=== PATIENT | male | born 1980 | race Native Hawaiian/Other Pacific Islander ===

== ENCOUNTER 2016-11-12 13:28 | Emergency (ER) | payer OTHER ==
[2016-11-12 13:44] VITALS: BP 150/101
[2016-11-12] MEDS ORDERED: BOOSTRIX IM ONE (14:30)
[2016-11-12] MEDS ORDERED: TRIPLE ANTIBIOTIC TP ONE (14:30)
--- NOTE | 2016-11-12 14:36 | Emergency Department Report ---
ED Laceration HPI - HPI Chief Complaint: Wound/Laceration Stated Complaint: CUT FINGER Time Seen by Provider: 11/12/16 14:23 ED Review of Systems ROS: Stated complaint: CUT FINGER Other details as noted in HPI Constitutional: denies: chills, fever Eyes: denies: eye pain, eye discharge, vision change Respiratory: denies: cough, shortness of breath, wheezing Skin: other (laceration left fourth finger) ED Past Medical Hx - Past Medical History Hx Hypertension: Yes Hx Heart Attack/AMI: Yes (2014) Hx Diabetes: Yes Additional medical history: ENLARGED HEART. CAD - Surgical History Hx Coronary Stent: Yes Hx Appendectomy: Yes - Social History Smoking Status: Former Smoker Substance Use Type: None - Medications Home Medications: Home Medications Medication Instructions Recorded Confirmed Last Taken Type Cephalexin [Keflex] 500 mg PO Q6HR #40 capsule 11/12/16 Unknown Rx Laceration Physical Exam - Exam General: Vital signs noted. No distress. Alert and acting appropriately. Laceration is 1 cm linear hemostatic dirty wound from working on car. No ligamentous or muscular involvement. A nonsuturable laceration. Laceration Exam: No Foreign Body, No Exposed Tendon, Vessel, or Nerve, No Tendon Injury, No Normal Distal CMS ED Course Vital Signs 11/12/16 13:42 Temperature 98.1 F Pulse Rate 115 H Respiratory 17 Rate Blood Pressure 150/101 O2 Sat by Pulse 97 Oximetry Critical care attestation.: If time is entered above; I have spent that time in minutes in the direct care of this critically ill patient, excluding procedure time. ED Disposition Clinical Impression: Encounter for wound care Disposition: DISCHARGED TO HOME OR SELFCARE Is pt being admited?: No Does the pt Need Aspirin: No Condition: Stable Instructions: Acute Wound Care (ED) Prescriptions: Cephalexin [Keflex] 500 mg PO Q6HR #40 capsule Referrals: PRIMARY CARE, [Primary Care Provider] - 3-5 Days
== END 2016-11-12 14:57 | disposition home or self-care (01) ==
LOC: ED 13:28
DX: Z48.01 Encounter for change or removal of surgical wound dressing (principal); I10 Essential (primary) hypertension; I25.2 Old myocardial infarction; E11.9 Type 2 diabetes mellitus without complications; I25.810 Atherosclerosis of coronary artery bypass graft(s) without angina pectoris
CPT/HCPCS: 90471; 90715; A6250

== ENCOUNTER 2017-06-30 06:41 | Observation (INO) | payer OTHER ==
[2017-06-30 07:31] LABS: Basophils % (Auto) 0.4 % (0.0-1.8); Eosinophils % (Auto) 2.7 % (0.0-4.3); Hematocrit 44.9 % (35.5-45.6); Hemoglobin 15.5 gm/dl (11.8-15.2); Mean Corpuscular HGB Conc 35 % (32-34); Mean Corpuscular Hemoglobin 30 pg (28-32); Mean Corpuscular Volume 86 fl (84-94); Platelet Count 280 K/mm3 (140-440); Red Blood Count 5.24 M/mm3 (3.65-5.03); White Blood Count 9.3 K/mm3 (4.5-11.0)
[2017-06-30 07:41] LABS: INR 0.96 (0.87-1.13)
[2017-06-30 07:43] LABS: Anion Gap 16 mmol/L; BUN/Creatinine Ratio 23.33; Blood Urea Nitrogen 14 mg/dL (9-20); Calcium 8.8 mg/dL (8.4-10.2); Carbon Dioxide 23 mmol/L (22-30); Chloride 102.7 mmol/L (98-107); Glucose 250 mg/dL (75-100); Potassium 3.8 mmol/L (3.6-5.0); Sodium 138 mmol/L (137-145)
[2017-06-30] MEDS ORDERED: NACL 0.9% 500 ML 500 ML IV SCH (08:00)
[2017-06-30] MEDS ORDERED: BENADRYL IV ONE (08:30)
[2017-06-30] MEDS ORDERED: NORCO 5/325 PO ONE (08:30)
[2017-06-30] MEDS: SUBLIMAZE ONE ×4 (11:30→12:43)
[2017-06-30] MEDS: XYLOCAINE 2% INFILTRATI ONE ×2 (11:31→11:39)
[2017-06-30] MEDS: HEPARIN/NS 5000 UNIT/500ML(CATH LAB) 1,000 ML IR ONE ×2 (11:31→11:38)
[2017-06-30] MEDS: NITROGLYCERIN SYRINGE 3 ML ONE ×2 (11:31→11:41)
[2017-06-30] MEDS: CALAN ONE ×2 (11:32→11:41)
[2017-06-30] MEDS: HEPARIN 10,000 UNITS/10 ML ONE ×5 (11:32→13:19)
[2017-06-30] MEDS: VERSED ONE ×2 (11:37→12:58)
[2017-06-30] MEDS ORDERED: HEPARIN/NS 5000 UNIT/500ML(CATH LAB) 1,000 ML IR ONE (12:49)
[2017-06-30] MEDS ORDERED: NITROGLYCERIN SYRINGE 3 ML ONE (12:50)
[2017-06-30] MEDS ORDERED: XYLOCAINE 2% INFILTRATI ONE (12:50)
[2017-06-30] MEDS ORDERED: CALAN ONE (12:50)
[2017-06-30] MEDS ORDERED: BRILINTA ONE (13:28)
--- NOTE | 2017-06-30 13:50 | Event Note ---
Date: 06/30/17 Outpatient cardiac cath followed by PCI of RCA with a DE stent deployed to midvessel. No complications. Procedure done via R radial approach. Plan: 1. Overnight post PCI obs-discharge tomorrow am. 2. On discharge STOP Prasugrel, and switch Brilinta 90 BID. 3. Patient has ASA allergy, and so will be on monotherapy. 4. Add Statin-Lipitor 40. 5. Hold Metformin for 2 days after contrast angio.
[2017-06-30] MEDS ORDERED: NACL 0.9% 1000 ML 1,000 ML IV SCH (14:00)
[2017-06-30] MEDS ORDERED: LOPRESSOR PO SCH (14:00)
[2017-06-30] MEDS ORDERED: NACL 0.9% 1000 ML 1,000 ML ONE (14:10)
[2017-06-30] MEDS: ULTRAM PO PRN ×2 (14:19→18:35)
[2017-06-30] MEDS ORDERED: ZOFRAN IV PRN (14:30)
[2017-06-30] MEDS ORDERED: TYLENOL PO PRN (14:30)
[2017-06-30] MEDS: IMDUR PO SCH (15:44)
[2017-06-30] MEDS: LOPRESSOR PO SCH (16:27)
--- NOTE | 2017-06-30 18:34 | Cardiac Catherization Report ---
REASON FOR PROCEDURE: The patient is a 37-year-old man who underwent cardiac catheterization today for unstable angina. Cardiac catheterization revealed significant disease of the right coronary artery. He was referred for coronary intervention. The angiograms were reviewed. The right coronary artery contained mild proximal disease. This was followed by a long, irregular 80% stenosis of the mid segment. Following that, a stent was noted in the distal AV groove vessel, midway between the acute margin and the right posterior descending branch. The stented segment contained diffuse, instent restenosis with up to 50-60% luminal narrowing. We planned coronary angioplasty of the distal instent restenosis, followed by angioplasty and stenting of the mid de emperatriz stenosis. PROCEDURE: A 6-Burkinan hydrophilic sheath was exchanged into the right radial artery, replacing the sheath from the diagnostic procedure. Routine radial cocktail was administered following sheath exchange. We then selected a #1 right Amplatz guiding catheter and advanced to the right coronary ostium. Preintervention angiograms were taken. A 0.014 inch [employer] 50 guidewire was introduced, successfully placed through the lesional segments, into the distal vessel. Following wire placement, we used a 3.0 x 15 mm balloon catheter, first dilated the distal instent restenosis. The same balloon catheter was then withdrawn, into the mid vessel, used to predilate the de emperatriz stenosis. Subsequently, we transitioned a 3.5 x 15 mm Resolute drug-eluting stent to the mid vessel and inflated to optimal pressures. Following stenting of the mid vessel, post-intervention angiogram showed an excellent angiographic result, 0 residual stenosis of the mid vessel. The distal instent restenosis also resolved following balloon angioplasty with an excellent angiographic result and no residual stenosis. The procedure was well tolerated by the patient and there were no complications. CONCLUSION: Successful angioplasty and stenting of the right coronary artery. The distal vessel instent restenosis was successfully treated using plain old balloon angioplasty without additional stenting. The de emperatriz 80% stenosis of the mid segment was treated successfully using a 3.5 x 15 mm Resolute drug-eluting stent. Excellent angiographic result at both treated sites. JOB# [id number] CHRIS/DIAZ
[2017-06-30] MEDS ORDERED: NAPROSYN PO PRN (20:33)
[2017-06-30] MEDS ORDERED: AMBIEN PO PRN (22:00)
[2017-07-01 06:01] LABS: Basophils % (Auto) 0.2 % (0.0-1.8); Eosinophils % (Auto) 0.2 % (0.0-4.3); Hematocrit 44.6 % (35.5-45.6); Hemoglobin 14.8 gm/dl (11.8-15.2); Mean Corpuscular HGB Conc 33 % (32-34); Mean Corpuscular Hemoglobin 29 pg (28-32); Mean Corpuscular Volume 86 fl (84-94); Platelet Count 305 K/mm3 (140-440); Red Blood Count 5.19 M/mm3 (3.65-5.03); Red Cell Distribution Width 13.5 % (13.2-15.2); White Blood Count 13.8 K/mm3 (4.5-11.0)
[2017-07-01 06:29] LABS: Anion Gap 20 mmol/L; Blood Urea Nitrogen 14 mg/dL (9-20); Calcium 9.3 mg/dL (8.4-10.2); Carbon Dioxide 21 mmol/L (22-30); Chloride 102.6 mmol/L (98-107); Creatine Kinase 52 units/L (55-170); Glucose 225 mg/dL (75-100); Potassium 3.8 mmol/L (3.6-5.0); Sodium 140 mmol/L (137-145)
--- NOTE | 2017-07-01 08:48 | XRay Report ---
AP CHEST: HISTORY: chest pain AP view of the chest demonstrates a normal mediastinal and cardiac contour with clear lungs and normal bony and soft tissue structures. IMPRESSION: Unremarkable AP chest.
[2017-07-01] MEDS ORDERED: BRILINTA PO SCH (10:00)
--- NOTE | 2017-07-01 10:54 | Short Stay Summary ---
Short Stay Documentation Date of service: 07/01/17 - History H&P: obtained from office - Allergies and Medications Current Medications: Allergies shellfish derived Allergy (Verified 11/12/16 13:38) Anaphylaxis aspirin Adverse Reaction (Verified 11/12/16 13:38) Hives Penicillins Adverse Reaction (Verified 11/12/16 13:38) Hives Home Medications Medication Instructions Recorded Confirmed Last Taken Type ISOSORBIDE MONOnitrate [Imdur ER] 30 mg PO DAILY 06/30/17 06/30/17 06/29/17 History 30mg Insulin Aspart [NovoLOG Flexpen] 5 units SQ TID 06/30/17 06/30/17 06/29/17 History 5units Insulin Detemir [Levemir] 25 units SQ HS 06/30/17 06/30/17 06/29/17 History 12.5units Metformin HCl [Glucophage] 1,000 mg PO DAILY 06/30/17 06/30/17 06/29/17 History 500mg Metoprolol [Lopressor TAB] 25 mg PO DAILY 06/30/17 06/30/17 06/29/17 History 25mg Prasugrel [Effient] 10 mg PO DAILY 06/30/17 06/30/17 06/29/17 History 10mg Active Medications Acetaminophen (Tylenol) 650 mg PO Q4H PRN PRN Reason: Pain MILD(1-3)/Fever >100.5/RAMOS Atorvastatin Calcium (Lipitor) 40 mg PO QHS [facility] Last Admin: 06/30/17 22:02 Dose: 40 mg Insulin Human Regular (Novolin R) 0 units SUB-Q ACHS [facility] PRN Reason: Protocol Last Admin: 06/30/17 22:03 Dose: 6 units Isosorbide Mononitrate (Imdur) 30 mg PO QDAY [facility] Last Admin: 06/30/17 15:44 Dose: 30 mg Metoprolol Tartrate (Lopressor) 25 mg PO DAILY [facility] Last Admin: 06/30/17 16:27 Dose: 25 mg Naproxen (Naprosyn) 500 mg PO Q12H PRN PRN Reason: Pain, Mild (1-3) Last Admin: 06/30/17 22:02 Dose: 500 mg Ondansetron HCl (Zofran) 4 mg IV Q8H PRN PRN Reason: N/V unrelieved by Reglan Ticagrelor (Brilinta) 90 mg PO BID IRINEO Tramadol HCl (Ultram) 50 mg PO Q4H PRN PRN Reason: Pain, Mild (1-3) Last Admin: 06/30/17 18:35 Dose: 50 mg Zolpidem Tartrate (Ambien) 5 mg PO QHS PRN PRN Reason: Sleep Last Admin: 06/30/17 22:03 Dose: 5 mg - Physical exam General appearance: no acute distress HEENT: PERRLA Lungs: Clear to auscultation Heart: Regular rate, Normal S1, Normal S2 - Brief post op/procedure progress note Procedure: Outpatient cardiac cath followed by PCI of RCA with a DE stent deployed. No complications. Procedure done via R radial approach. Plan: 1. On discharge STOP Prasugrel, and switch Brilinta 90 BID. 2. Patient has ASA allergy, and so will be on monotherapy. 3. Add Statin-Lipitor 40. 4. Hold Metformin for 2 days after contrast angio. Condition: stable - Hospital course Hospital course: Stable overnight observation. Patient recommended to see his PCP in the outpatient setting for further evaluation and therapy for his diabetes. - Disposition Condition at discharge: Good Disposition: [id number] TO HOME OR SELFCARE Short Stay Discharge Plan Diet: low fat, low cholesterol, low salt, diabetic Special Instructions: hold Metformin (48hrs post cardiac cath) Follow up with: PRIMARY CARE, [Primary Care Provider] - 7 Days [facility] Prescriptions: AtorvaSTATin [Lipitor] 40 mg PO QHS #30 tablet Ticagrelor [Brilinta] 90 mg PO BID #60 tablet
[2017-07-01] MEDS: IMDUR PO SCH (11:43)
[2017-07-01] MEDS: LOPRESSOR PO SCH (12:24)
[2017-07-01 12:25] VITALS: BP 118/74
--- NOTE | 2017-07-02 08:59 | Cardiac Catherization Report ---
LEFT HEART CATHETERIZATION ORDERING PHYSICIAN: Dr. Montana PROCEDURES PERFORMED: 1. Selective left and right coronary angiography. 2. Left ventriculography. DESCRIPTION OF PROCEDURE: After obtaining written consent, the patient was draped using sterile technique. A 2% lidocaine was injected into the right wrist. A 6-Indonesian vascular sheath was inserted into the right radial artery. A 6-Indonesian JL3.5 catheter was used to selectively engage the left coronary artery. A 6-Indonesian JR4 catheter was used to selectively engage the right coronary artery. A 6-Indonesian JR4 catheter was used to hand inject the left ventriculogram. No complications occurred during the procedure. Hemostasis was achieved at the end of the procedure using manual pressure. SPECIMEN REMOVED: None. ESTIMATED BLOOD LOSS: Minimal. FINDINGS: HEMODYNAMICS: Aortic pressure was 130/87 with a left ventricular systolic pressure of 134 mmHg. LVEDP measured at 26 mmHg. CARDIAC STRUCTURES: There is normal left ventricular size and systolic function. The left ventricular ejection fraction is estimated at 55%. Normal wall motion. CORONARY ANATOMY: 1. This is a right dominant circulation. 2. The left main is angiographically normal. 3. The LAD has mild diffuse nonobstructive luminal irregularities. 4. Left circumflex artery has evidence of a focal 40% stenosis noted at the takeoff of the second obtuse marginal. 5. The right coronary artery is a large caliber vessel. There is evidence of a tubular stenosis noted in the proximal to mid right coronary artery with 70% luminal compromise. There is a stent noted in the distal right coronary artery with at least 20-30% in-stent restenosis. The area within the stent is hazy and therefore cannot exclude a more significant stenosis in this area. IMPRESSION: 1.Nonobstructive disease noted in the left circulation. 2.A 70% tubular stenosis noted in the proximal to mid right coronary artery followed by a hazy in-stent restenosis noted in the distal right coronary artery. 3.Normal left ventricular size and systolic function. RECOMMENDATIONS: Proceed with PCI to the proximal and mid right coronary artery and further evaluation of the hazy lesion within the distal right coronary artery stent. JOB# [id number] KYREE/DIAZ
== END 2017-07-01 12:50 | disposition home or self-care (01) ==
LOC: CATHLABREC 06:41 → 4A 13:39
PROVIDERS: ADMIT Internal Medicine Cardiovascular Disease; ATTEND Internal Medicine
DX: I25.110 Atherosclerotic heart disease of native coronary artery with unstable angina pectoris (principal); F41.9 Anxiety disorder, unspecified; E11.9 Type 2 diabetes mellitus without complications; F32.9 Major depressive disorder, single episode, unspecified; E78.5 Hyperlipidemia, unspecified; I10 Essential (primary) hypertension; R00.2 Palpitations; Z82.49 Family history of ischemic heart disease and other diseases of the circulatory system
CPT/HCPCS: 36415; 71010; 80048; 82550; 82553; 82962; 84484; 85025; 85347; 85610; 85730; 93005; 93010; 93458; 96372; 96374; A9270; C1725; C1769; C1874; C1887; C1894; C9600; G0378; J1200; J1644; J2250; J2930; J3010; J7030; J7040; 92928; 96375; J1815; Q9967

== ENCOUNTER 2020-02-02 16:59 | Observation (INO) | payer SELFPAY ==
--- NOTE | 2020-02-02 18:02 | XRay Report ---
CHEST 2 VIEWS INDICATION / CLINICAL INFORMATION: Chest pain intermittently for 2 days, abnormal EKG. COMPARISON: None available. FINDINGS: SUPPORT DEVICES: None. HEART / MEDIASTINUM: No significant abnormality. LUNGS / PLEURA: No significant pulmonary or pleural abnormality. .No pneumothorax. ADDITIONAL FINDINGS: There are fractures of the left seventh and eighth ribs. There is associated ple ural thickening which may represent focal hematoma IMPRESSION: 1. There are fractures of the left seventh and eighth ribs. There is focal pleural thickening which m ay represent loculated pleural or subpleural hematoma. No pneumothorax is seen. Signer Name: Max Elaine MD Signed: 02/02/2020 5:57 PM Workstation Name: [id number]
[2020-02-02 18:29] LABS: Basophils # (Auto) 0.1 K/mm3 (0.0-0.1); Basophils % (Auto) 0.8 % (0.0-1.8); Eosinophils # (Auto) 0.1 K/mm3 (0.0-0.4); Eosinophils % (Auto) 1.4 % (0.0-4.3); Lymphocytes # (Auto) 2.8 K/mm3 (1.2-5.4); Lymphocytes % (Auto) 32.4 % (13.4-35.0); Mean Corpuscular HGB Conc 36 % (32-34); Mean Corpuscular Volume 87 fl (84-94); Monocytes # (Auto) 0.7 K/mm3 (0.0-0.8); Monocytes % (Auto) 7.8 % (0.0-7.3); Platelet Count 314 K/mm3 (140-440); Red Blood Count 5.02 M/mm3 (3.65-5.03); Red Cell Distribution Width 13.4 % (13.2-15.2)
[2020-02-02 18:36] LABS: Hematocrit 43.4 % (35.5-45.6); Hemoglobin 15.5 gm/dl (11.8-15.2)
[2020-02-02 18:37] LABS: INR 0.95 (0.87-1.13)
[2020-02-02 18:38] LABS: Partial Thromboplastin Time 31.3 Sec. (24.2-36.6)
[2020-02-02 18:51] LABS: BUN/Creatinine Ratio 27; Blood Urea Nitrogen 16 mg/dL (9-20); Hemolysis Index 22
[2020-02-02] MEDS ORDERED: MORPHINE 4 MG/1 ML INJ IV ONE (19:48)
[2020-02-02] MEDS ORDERED: SODIUM CHLORIDE 0.9% 250ML 250 ML IV ONE (19:48)
[2020-02-02] MEDS ORDERED: NITROGLYCERIN 0.4 MG TAB SUBL SL PRN (19:48)
--- NOTE | 2020-02-02 19:48 | Emergency Department Report ---
ED Chest Pain HPI - General Chief Complaint: Chest Pain Stated Complaint: ABNORMAL EKG Time Seen by Provider: 02/02/20 19:28 Source: patient, RN notes reviewed, old records reviewed Mode of arrival: Ambulatory Limitations: No Limitations - History of Present Illness Initial Comments: Patient is a pleasant 39-year-old gentleman. He is not known to myself previously. He has a history of heart disease, diabetes, stent, myocardial infarction. His spring coiler is with [facility]. He is currently on Plavix therapy secondary to aspirin intolerance and allergy, and he denies DVT and pulmonary embolism risk factors. He also has a history of hypertension. He is sent to the ER by his spring coiler ( Dr Taylor) for evaluation of concerning chest pain and dynamic EKG changes. Patient reports a few days of intermittent central and left-sided chest discomfort, which does not radiate to the back, arms or neck. There is no vomiting or diaphoresis. There is shortness of breath. Patient reports this feels similar to prior episodes of myocardial ischemia. At his spring coiler office, he had an EKG performed, showing diffuse T wave ab normalities, which were new when compared to prior EKG. Patient reports that when his chest pain started a few days ago, it was a 7 out of 10, currently it is a 3 out of 10. He denies cocaine use, and erectile dysfunction medication utilization. He reports that he gets symptoms like this once a year typically, and that he knows that "it is time to get my stents checked out." The patient had a cardiac catheterization performed at this hospital in 2017, demonstrated nonobstructive disease noted in the left circulation, a 70% tubular stenosis was noted to the proximal to mid right coronary artery, followed by a hazy in-stent restenosis noted in the distal right coronary artery. He was also found to have a normal left ventricular size and systolic function, and at that time, plan was to proceed with PCI to the proximal and mid right coronary artery, and further evaluation of the aforementioned hazy lesion. At that time, he had a successful angioplasty and stenting of the right coronary artery, the distal vessel in-stent restenosis was successfully treated using plain old balloon angioplasty, without additional stenting. He was also found to have de emperatriz 80% stenosis of the mid segment, which was treated successfully with a drug-eluting stent. There is no complaint of headache, neck pain, abdominal pain, urinary symptoms, and there is no hematemesis or bright red blood per rectum. Of note, the patient reports a mechanical fall a few months ago, and has chronic left-sided rib fractures which he is aware of. He does report stumbling recently and bruising his right hand but he denies acute chest wall trauma MD Complaint: chest pain Onset: during rest Pain Location: left chest Pain Radiation: none Severity: moderate Quality: aching Consistency: intermittent Improves With: nothing Worsens With: nothing Aspirin use within the Past 7 Days: (0) No - Related Data On Oral Contraceptives: No Home Medications Medication Instructions Recorded Confirmed Last Taken Metformin HCl [Glucophage] 1,000 mg PO DAILY 06/30/17 02/03/20 02/01/20 Metoprolol [Lopressor TAB] 50 mg PO DAILY 06/30/17 02/03/20 02/03/20 05:32 Benzonatate 100 mg PO TID PRN 02/02/20 02/03/20 02/03/20 05:32 Clopidogrel [Plavix] 75 mg PO QDAY 02/02/20 02/03/20 02/03/20 05:31 Escitalopram 20 mg PO QDAY 02/02/20 02/03/20 02/03/20 05:32 Famotidine/Ca Carb/Mag Hydrox 20 mg PO BID 02/02/20 02/03/20 02/03/20 05:32 Rosuvastatin Calcium 40 mg PO QDAY 02/02/20 02/03/20 02/01/20 lisinopriL [Zestril TAB] 20 mg PO QDAY 02/02/20 02/02/20 02/03/20 05:32 traZODone 50 mg PO QHS PRN 02/02/20 02/03/20 02/03/20 05:32 Previous Rx's Medication Instructions Recorded Last Taken Type Acetaminophen [Acetaminophen TAB] 325 mg PO Q4H PRN #18 tablet 02/03/20 Unknown Rx HYDROcodone/APAP 5-325 [Ker[place] 1 each PO Q4H PRN #6 tablet 02/03/20 Unknown Rx 5-325 mg TAB] Allergies Allergy/AdvReac Type Severity Reaction Status Date / Time shellfish derived Allergy Anaphylaxis Verified 02/02/20 17:06 aspirin AdvReac Hives Verified 02/02/20 17:06 Penicillins AdvReac Hives Verified 02/02/20 17:06 Heart Score - HEART Score History: Moderately suspicious EKG: Non-specific Age: < 45 Risk factors: > 3 risk factors or hx of atherosclerotic disease Troponin: < normal limit HEART Score: 4 - Critical Actions Critical Actions: 4-6 pts:12-16.6% risk of adverse cardiac event. Should be admitted ED Review of Systems ROS: Stated complaint: ABNORMAL EKG Other details as noted in HPI Constitutional: denies: diaphoresis, fever Eyes: denies: eye discharge ENT: denies: congestion Respiratory: shortness of breath Cardiovascular: chest pain Gastrointestinal: denies: abdominal pain, nausea, vomiting, hematemesis, melena, hematochezia Genitourinary: as per HPI. denies: dysuria Musculoskeletal: as per HPI Skin: as per HPI Neurological: as per HPI Psychiatric: as per HPI Hematological/Lymphatic: as per HPI ED Past Medical Hx - Past Medical History Hx Hypertension: Yes Hx Heart Attack/AMI: Yes (2014, 2016) Hx Congestive Heart Failure: Yes Hx Diabetes: Yes Hx Kidney Stones: Yes Hx Asthma: Yes Additional medical history: ENLARGED HEART. CAD - Surgical History Past Surgical History?: Yes Hx Coronary Stent: Yes (2014, 2016) Hx Appendectomy: Yes - Social History Smoking Status: Former Smoker Substance Use Type: Alcohol, Marijuana - Medications Home Medications: Home Medications Medication Instructions Recorded Confirmed Last Taken Type Metformin HCl [Glucophage] 1,000 mg PO DAILY 06/30/17 02/03/20 02/01/20 History Metoprolol [Lopressor TAB] 50 mg PO DAILY 06/30/17 02/03/20 02/03/20 05:32 History Benzonatate 100 mg PO TID PRN 02/02/20 02/03/20 02/03/20 05:32 History Clopidogrel [Plavix] 75 mg PO QDAY 02/02/20 02/03/20 02/03/20 05:31 History Escitalopram 20 mg PO QDAY 02/02/20 02/03/20 02/03/20 05:32 History Famotidine/Ca Carb/Mag Hydrox 20 mg PO BID 02/02/20 02/03/20 02/03/20 05:32 History Rosuvastatin Calcium 40 mg PO QDAY 04/24/20 04/25/20 04/23/20 History lisinopriL [Zestril TAB] 20 mg PO QDAY 02/02/20 02/02/20 02/03/20 05:32 History traZODone 50 mg PO QHS PRN 02/02/20 02/03/20 02/03/20 05:32 History Acetaminophen [Acetaminophen TAB] 325 mg PO Q4H PRN #18 tablet 02/03/20 Unknown Rx HYDROcodone/APAP 5-325 [Kerrick 1 each PO Q4H PRN #6 tablet 02/03/20 Unknown Rx 5-325 mg TAB] ED Physical Exam - General Limitations: No Limitations General appearance: alert, in no apparent distress - Head Head exam: Present: atraumatic, normocephalic - Eye Eye exam: Present: normal appearance, EOMI. Absent: nystagmus - ENT ENT exam: Present: normal exam, normal orophraynx, mucous membranes moist, normal external ear exam - Neck Neck exam: Present: normal inspection, full ROM. Absent: tenderness, meningismus - Respiratory Respiratory exam: Present: normal lung sounds bilaterally. Absent: respiratory distress - Cardiovascular Cardiovascular Exam: Present: regular rate, normal rhythm, normal heart sounds. Absent: bradycardia, tachycardia, irregular rhythm, systolic murmur, diastolic murmur, rubs, gallop - GI/Abdominal GI/Abdominal exam: Present: soft. Absent: distended, tenderness, guarding, rebound, rigid, pulsatile mass - Rectal Rectal exam: Present: deferred - Extremities Exam Extremities exam: Present: normal inspection, full ROM, other (2+ pulses noted in the bilateral upper and lower extremities. There is no palpable cord. negative Homans sign. Muscular compartments are soft. The pelvis is stable.). Absent: pedal edema, calf tenderness - Back Exam Back exam: Present: normal inspection, full ROM. Absent: tenderness, CVA tenderness (R), CVA tenderness (L), paraspinal tenderness, vertebral tenderness - Neurological Exam Neurological exam: Present: alert, oriented X3, normal gait, other (No facial droop. Tongue midline. Extraocular movements intact bilaterally. Facial sensation intact to light touch in V1, V2, V3 distribution bilaterally. 5 and a 5 strength in 4 extremities. Sensation intact to light touch in 4 extremities.). Absent: motor sensory deficit - Psychiatric Psychiatric exam: Present: anxious - Skin Skin exam: Present: warm, dry, intact, normal color. Absent: rash ED Course Vital Signs 02/02/20 02/02/20 02/02/20 17:02 17:06 19:31 Temperature 98 F Pulse Rate 71 Respiratory 16 Rate Blood Pressure 136/78 125/80 O2 Sat by Pulse 98 Oximetry 02/02/20 02/02/20 02/02/20 20:00 21:01 22:00 Temperature Pulse Rate 77 64 Respiratory 20 21 22 Rate Blood Pressure 110/79 133/76 113/61 O2 Sat by Pulse 97 97 97 Oximetry 02/02/20 02/02/20 02/02/20 22:51 23:01 23:11 Temperature Pulse Rate 67 64 65 Respiratory 20 22 22 Rate Blood Pressure 113/61 113/61 113/61 O2 Sat by Pulse 96 97 96 Oximetry 02/02/20 02/02/20 02/02/20 23:21 23:31 23:55 Temperature 98.5 F Pulse Rate 72 66 59 L Respiratory 19 7 L 16 Rate Blood Pressure 113/61 113/61 109/58 O2 Sat by Pulse 97 97 95 Oximetry EMIL score - Emil Score Age > 65: (0) No Aspirin use within the Past 7 Days: (0) No 3 or more CAD Risk Factors: (1) Yes 2 or more Angina events in past 24 hrs: (1) Yes Known CAD with more than 50% Stenosis: (0) No Elevated Cardiac Markers: (0) No ST Deviation Greater than 0.5mm: (0) No EMIL Score: 2 ED Medical Decision Making - Lab Data Result diagrams: 02/03/20 06:55 02/03/20 06:55 Vital Signs 02/02/20 02/02/20 02/02/20 17:02 17:06 19:31 Temperature 98 F Pulse Rate 71 Respiratory 16 Rate Blood Pressure 136/78 125/80 O2 Sat by Pulse 98 Oximetry 02/02/20 20:00 Temperature Pulse Rate 77 Respiratory 20 Rate Blood Pressure 110/79 O2 Sat by Pulse 97 Oximetry Lab Results 02/02/20 02/02/20 02/02/20 Range/Units 17:23 17:23 17:23 WBC 8.7 (4.5-11.0) K/mm3 RBC 5.02 (3.65-5.03) M/mm3 Hgb 15.5 H (11.8-15.2) gm/dl Hct 43.4 (35.5-45.6) % MCV 87 (84-94) fl MCH 31 (28-32) pg MCHC 36 H (32-34) % RDW 13.4 (13.2-15.2) % Plt Count 314 (140-440) K/mm3 Lymph % (Auto) 32.4 (13.4-35.0) % [place] % (Auto) 7.8 H (0.0-7.3) % Eos % (Auto) 1.4 (0.0-4.3) % Baso % (Auto) 0.8 (0.0-1.8) % Lymph # 2.8 (1.2-5.4) K/mm3 [place] # 0.7 (0.0-0.8) K/mm3 Eos # 0.1 (0.0-0.4) K/mm3 Baso # 0.1 (0.0-0.1) K/mm3 Seg Neutrophils % 57.6 (40.0-70.0) % Seg Neutrophils # 5.0 (1.8-7.7) K/mm3 PT 12.8 (12.2-14.9) Sec. INR 0.95 (0.87-1.13) APTT 31.3 (24.2-36.6) Sec. Sodium 134 L (137-145) mmol/L Potassium 3.7 (3.6-5.0) mmol/L Chloride 98.8 (98-107) mmol/L Carbon Dioxide 19 L (22-30) mmol/L Anion Gap 20 mmol/L BUN 16 (9-20) mg/dL Creatinine 0.6 L (0.8-1.5) mg/dL Estimated GFR > 60 ml/min BUN/Creatinine Ratio 27 % Glucose 390 H (75-100) mg/dL Calcium 9.0 (8.4-10.2) mg/dL Troponin T < 0.010 (0.00-0.029) ng/mL 02/02/20 Range/Units 19:46 WBC (4.5-11.0) K/mm3 RBC (3.65-5.03) M/mm3 Hgb (11.8-15.2) gm/dl Hct (35.5-45.6) % MCV (84-94) fl MCH (28-32) pg MCHC (32-34) % RDW (13.2-15.2) % Plt Count (140-440) K/mm3 Lymph % (Auto) (13.4-35.0) % [place] % (Auto) (0.0-7.3) % Eos % (Auto) (0.0-4.3) % Baso % (Auto) (0.0-1.8) % Lymph # (1.2-5.4) K/mm3 [place] # (0.0-0.8) K/mm3 Eos # (0.0-0.4) K/mm3 Baso # (0.0-0.1) K/mm3 Seg Neutrophils % (40.0-70.0) % Seg Neutrophils # (1.8-7.7) K/mm3 PT (12.2-14.9) Sec. INR (0.87-1.13) APTT (24.2-36.6) Sec. Sodium (137-145) mmol/L Potassium (3.6-5.0) mmol/L Chloride (98-107) mmol/L Carbon Dioxide (22-30) mmol/L Anion Gap mmol/L BUN (9-20) mg/dL Creatinine (0.8-1.5) mg/dL Estimated GFR ml/min BUN/Creatinine Ratio % Glucose (75-100) mg/dL Calcium (8.4-10.2) mg/dL Troponin T < 0.010 (0.00-0.029) ng/mL - Radiology Data Radiology results: pending, report reviewed, image reviewed Print Report Referring Physician: COURT RM Patient Name: JULIUS OJEDA Date of : 1980 Sex: Male Report Date: 2020-02-02 Report Status: Finalized Findings [facility] [address] [place] [address] Cat Scan Report Signed Patient: JULIUS OJEDA MR#: [id number] : 1980 Acct:[id number] Age/Sex: 39 / M ADM Date: 02/02/20 Loc: ED Attending Dr: Rico thompson Physician: COURT RM MD Date of Service: 02/02/20 Procedure(s): CT chest wo con Accession Number(s): [id number] cc: COURT MR MD CT chest wo con INDICATION / CLINICAL INFORMATION: cp, old rib rx, hematoma vs callous formation. TECHNIQUE: All CT scans at this location are performed using CT dose reduction for ALARA by means of automated exposure control. COMPARISON: Standard 2 view chest x-ray 02/02/2020 FINDINGS: There are old fractures of the left posterior lateral seventh and eighth ribs. There is mild associated pleural thickening but no evidence of extrapleural hematoma, pleural effusion or acute lung disease. Mediastinal images are normal. Limited upper abdominal images are not remarkable. IMPRESSION: 1. Remote left rib fractures with no evidence of recent hemorrhage or extrapleural fluid collection. Signer Name: Orion Loomis MD Signed: 02/02/2020 9:18 PM Workstation Name: [id number] Transcribed By: ELYSSA Dictated By: Orion Loomis MD Electronically Authenticated By: Orion Loomis MD Signed Date/Time: 02/02/202117 DD/ 15 Print Report Referring Physician: FRANK BAUER Patient Name: JULIUS OJEDA Date of : 1980 Sex: Male Report Date: 2020-02-02 Report Status: Finalized Findings [facility] [address] [place] [address] XRay Report Signed Patient: JULIUS OJEDA MR#: [id number] : 1980 Acct:[id number] Age/Sex: 39 / M ADM Date: 02/02/20 Loc: ED Attending Dr: Ordering Physician: FRANK BAUER MD Date of Service: 02/02/20 Procedure(s): XR chest routine 2V Accession Number(s): [id number] cc: FRANK BAUER MD Fluoro Time In Minutes: CHEST 2 VIEWS INDICATION / CLINICAL INFORMATION: Chest pain intermittently for 2 days, abnormal EKG. COMPARISON: None available. FINDINGS: SUPPORT DEVICES: None. HEART / MEDIASTINUM: No significant abnormality. LUNGS / PLEURA: No significant pulmonary or pleural abnormality. .No pneumothorax. ADDITIONAL FINDINGS: There are fractures of the left seventh and eighth ribs. There is associated pleural thickening which may represent focal hematoma IMPRESSION: 1. There are fractures of the left seventh and eighth ribs. There is focal pleural thickening which may represent loculated pleural or subpleural hematoma. No pneumothorax is seen. Signer Name: Max Elaine MD Signed: 02/02/2020 5:57 PM Workstation Name: [id number] Transcribed By: SS Dictated By: Max Elaine MD Electronically Authenticated By: Max Elaine MD Signed Date/Time: 02/02/201756 DD/ 54 TD/TT: - Medical Decision Making Differential diagnosis, including but not limited to: Stable angina, unstable angina, remote rib fractures versus new rib fractures Assessment and plan: 39-year-old gentleman with known history of heart disease, stent, in-stent stenosis, multiple vascular risk factors, with no pulmonary embolism or DVT risk factors, low risk by Wells criteria, perc negative, who was sent to the emergency room by his spring coiler for evaluation of stuttering chest pain, reminiscent of prior ACS, with dynamic EKG changes. Of note, the patient has a remote history of left-sided rib trauma, and has known left-sided rib fractures. He is not tender on his left-sided ribs. An x- ray of the chest suggested rib fractures and possible hematoma, therefore, a CT scan of the chest was obtained, which excluded acute traumatic injury, pneumothorax, and hematoma. Patient medicated with nitroglycerin and morphine, and he is basically pain-free at this time, and declines additional pain medicine at this time. His first EKG performed in the emergency room appears to be morphologically similar to his prior EKG from June 2017, and this similar to his prehospital EKG obtained at his primary spring coiler office. Patient at moderate risk for major adverse cardiac event as per heart score, and therefore requires admission to the hospital for urgent/emergent cardiac risk ratification. Given that he is pain-free at this time, and appears to be very comfortable, I do not see an indication for heparinization. The patient is amenable to admission and hospitalization at this time. Contacted hospital physician, Dr. Talbert, who will accept the patient to the medical service. Contacted covering cardiology, Dr. Terrazas, discussed the patient's history, ph ysical, pertinent laboratory studies, and EKG findings, the group will follow in consultation, and likely catheterized the patient urgently. Patient denies cough, fever, and exposure to coronavirus. Incidental hyperglycemia reviewed and appreciated, without anion gap acidosis, fluids and insulin ordered. Critical care attestation.: If time is entered above; I have spent that time in minutes in the direct care of this critically ill patient, excluding procedure time. ED Disposition Clinical Impression: Acute chest pain, Hyperglycemia CAD (coronary artery disease) Qualifiers: Coronary Disease-Associated Artery/Lesion type: unspecified vessel or lesion type [place] vs. transplanted heart: [place] heart Associated angina: with other forms of angina Qualified Code(s): I25.118 - Atherosclerotic heart disease of [place] coronary artery with other forms of angina pectoris Rib fractures Qualifiers: Encounter type: subsequent encounter Rib fracture type: multiple ribs Fracture type: closed Laterality: left Fracture healing: with routine healing Qualified Code(s): S22.42XD - Multiple fractures of ribs, left side, subsequent encounter for fracture with routine healing Disposition: OP ADMIT IP TO THIS HOSP Is pt being admited?: Yes Does the pt Need Aspirin: No Condition: Stable
[2020-02-02] MEDS ORDERED: INSULIN REGULAR, HUMAN 100 UNITS/1 ML IV ONE (20:47)
--- NOTE | 2020-02-02 21:23 | Cat Scan Report ---
CT chest wo con INDICATION / CLINICAL INFORMATION: cp, old rib rx, hematoma vs callous formation. TECHNIQUE: All CT scans at this location are performed using CT dose reduction for ALARA by means of automated e xposure control. COMPARISON: Standard 2 view chest x-ray 02/02/2020 FINDINGS: There are old fractures of the left posterior lateral seventh and eighth ribs. There is mild associat ed pleural thickening but no evidence of extrapleural hematoma, pleural effusion or acute lung diseas e. Mediastinal images are normal. Limited upper abdominal images are not remarkable. IMPRESSION: 1. Remote left rib fractures with no evidence of recent hemorrhage or extrapleural fluid collection. Signer Name: Orion Loomis MD Signed: 02/02/2020 9:18 PM Workstation Name: [id number]
[2020-02-02] MEDS ORDERED: CLOPIDOGREL 75 MG TAB PO ONE (21:33)
[2020-02-02] MEDS ORDERED: ENOXAPARIN 30 MG/0.3 ML INJ SUB-Q ONE (22:06)
[2020-02-02] MEDS ORDERED: ACETAMINOPHEN 325 MG TAB PO ONE (22:25)
[2020-02-02] MEDS ORDERED: ONDANSETRON 4 MG/2 ML INJ IV PRN (22:40)
[2020-02-02] MEDS ORDERED: ACETAMINOPHEN 325 MG TAB PO PRN (22:40)
[2020-02-02] MEDS ORDERED: MORPHINE 2 MG/1 ML INJ IV PRN (22:40)
--- NOTE | 2020-02-02 22:47 | History and Physical Report ---
History of Present Illness Date of admission: 02/02/20 21:49 History of present illness: 39-year-old male with a history of hypertension, diabetes, coronary artery disease, CHF, asthma comes emergency room with complaints of chest pain. Pain is in the left chest which he described as someone sitting on his chest that has been intermittent over the last 2 days, 15 to 30 minutes intervals, intensity 5/10, no radiation, relieved with nitroglycerin. Admits to shortness of breath, no nausea vomiting, diaphoresis or palpitation. Patient will be admitted for chest pain evaluation Review Of Systems: Constitutional: no weight loss, fever, chills Ears, eyes, nose, mouth and throat: no nasal congestion, no nasal discharge, no sinus pressure, blurry vision, diplopia Neck: No neck pain or rigidity. Cardiovascular: No palpitations Respiratory: No shortness of breath, cough Gastrointestinal: No hematochezia, abdominal pain Genitourinary : no dysuria, frequency Musculoskeletal: no muscle ache , joint pain Integumentary: no rash, no pruritis Neurological: no parathesias, focal weakness Endocrine: no cold or heat intolerance, no polyuria or polydipsia Hematologic/Lymphatic: no easy bruising, no easy bleeding, no gland swelling Allergic/Immunologic: no urticaria, no angioedema. PAST MEDICAL HISTORY: hypertension, diabetes, coronary artery disease, CHF, asthma PAST SURGICAL HISTORY: Appendectomy SOCIAL HISTORY: +alcohol, Deniestobacco, drugs FAMILY HISTORY: Hypertension Medications and Allergies Allergies Allergy/AdvReac Type Severity Reaction Status Date / Time shellfish derived Allergy Anaphylaxis Verified 02/02/20 17:06 aspirin AdvReac Hives Verified 02/02/20 17:06 Penicillins AdvReac Hives Verified 02/02/20 17:06 Home Medications Medication Instructions Recorded Confirmed Last Taken Type Metformin HCl [Glucophage] 1,000 mg PO DAILY 06/30/17 02/02/20 06/29/17 History 500 mg Metoprolol [Lopressor TAB] 50 mg PO DAILY 06/30/17 06/30/17 02/02/20 History Benzonatate 100 mg PO TID PRN 02/02/20 02/02/20 Unknown History Clopidogrel [Plavix] 75 mg PO QDAY 02/02/20 02/02/20 Unknown History Diclofenac EC 50 mg PO QDAY 02/02/20 02/02/20 Unknown History Escitalopram 20 mg PO QDAY 02/02/20 02/02/20 Unknown History Famotidine/Ca Carb/Mag Hydrox 20 mg PO BID 02/02/20 02/02/20 Unknown History Promethazine 25 mg PO Q6H PRN 02/02/20 02/02/20 Unknown History Rosuvastatin Calcium 40 mg PO QDAY 02/02/20 02/02/20 Unknown History lisinopriL [Zestril TAB] 20 mg PO QDAY 02/02/20 02/02/20 02/02/20 History traZODone 50 mg PO QHS PRN 02/02/20 02/02/20 Unknown History Active Meds: Active Medications Acetaminophen (Tylenol) 650 mg PO Q4H PRN PRN Reason: Pain MILD(1-3)/Fever >100.5/RAMOS Enoxaparin Sodium (Enoxaparin) 30 mg SUB-Q QDAY IRINEO Morphine Sulfate (Morphine) 2 mg IV Q4H PRN PRN Reason: Pain, Moderate (4-6) Nitroglycerin (Nitrostat) 0.4 mg SL .Q5MIN PRN PRN Reason: Chest Pain Last Admin: 02/02/20 20:20 Dose: 0.4 mg Documented by: Ondansetron HCl (Zofran) 4 mg IV Q8H PRN PRN Reason: Nausea And Vomiting Sodium Chloride (Sodium Chloride Flush Syringe 10 Ml) 10 ml IV BID IRINEO Sodium Chloride (Sodium Chloride Flush Syringe 10 Ml) 10 ml IV PRN PRN PRN Reason: LINE FLUSH Exam - Physical Exam Narrative exam: Gen. appearance: Patient lying in bed, no apparent distress HEENT: Normocephalic, atraumatic, pupils equally round and reactive to light, extraocular movement intact, and no sclericterus,. No JVD or thyromegaly or nodule,neck supple, no carotid bruit ,mucous membranes moist, no exudate or erythema Heart: S1, S2, regular rate and rhythm Lungs: Clear bilaterally, breathing comfortable Abdomen: Positive bowel sounds, nontender, nondistended, no organomegaly Extremity: no edema, cyanosis, clubbing Skin: No rash, nodules, warm, dry Neuro: Cranial nerves II to XII intact, speech is fluent, moves extremities, sensory intact - Constitutional Vitals: Temp Pulse Resp BP Pulse Ox 98 F 77 20 110/79 97 02/02/20 17:06 02/02/20 20:00 02/02/20 20:00 02/02/20 20:00 02/02/20 20:00 Results - Labs CBC & Chem 7: 02/02/20 17:23 02/02/20 17:23 Labs: Abnormal lab results 02/02/20 02/02/20 Range/Units 17:23 17:23 Hgb 15.5 H (11.8-15.2) gm/dl MCHC 36 H (32-34) % [place] % (Auto) 7.8 H (0.0-7.3) % Sodium 134 L (137-145) mmol/L Carbon Dioxide 19 L (22-30) mmol/L Creatinine 0.6 L (0.8-1.5) mg/dL Glucose 390 H (75-100) mg/dL - Imaging and Cardiology EKG: image reviewed Chest x-ray: report reviewed CT scan - chest: report reviewed Assessment and Plan Assessment Chest pain/coronary artery disease Check cardiac enzymes, IV morphine, consult cardiology CHF, stable, probably diastolic Diabetes Check fingersticks, start insulin sliding scale Hypertension Continue outpatient medications DVT prophylaxis
[2020-02-02 23:41] LABS: Creatine Kinase MB 1.9 ng/mL (0.0-4.0)
[2020-02-03] MEDS ORDERED: NON-FORMULARY EACH (Trazodone 50 MG) PO PRN (01:42)
[2020-02-03] MEDS ORDERED: BENZONATATE 100 MG PO PRN (01:42)
[2020-02-03] MEDS ORDERED: traZODone 50 MG TAB PO PRN (01:45)
[2020-02-03] MEDS ORDERED: BENZONATATE 100 MG CAP PO PRN (01:46)
[2020-02-03] MEDS ORDERED: DEXTROSE 50% IN WATER (25GM) 50 ML SYRINGE IV PRN (04:56)
[2020-02-03] MEDS ORDERED: INSULIN LISPRO 100 UNIT/ML SUB-Q SCH (07:30)
[2020-02-03 07:35] LABS: Basophils % (Auto) 0.6 % (0.0-1.8); Eosinophils # (Auto) 0.2 K/mm3 (0.0-0.4); Eosinophils % (Auto) 2.6 % (0.0-4.3); Hematocrit 45.3 % (35.5-45.6); Hemoglobin 15.7 gm/dl (11.8-15.2); Lymphocytes # (Auto) 2.5 K/mm3 (1.2-5.4); Mean Corpuscular HGB Conc 35 % (32-34); Mean Corpuscular Volume 87 fl (84-94); Monocytes # (Auto) 0.6 K/mm3 (0.0-0.8); Monocytes % (Auto) 8.3 % (0.0-7.3); Platelet Count 296 K/mm3 (140-440); Red Blood Count 5.22 M/mm3 (3.65-5.03); Red Cell Distribution Width 13.5 % (13.2-15.2)
--- NOTE | 2020-02-03 07:37 | Progress Note ---
Assessment and Plan Assessment and plan: Patient is a 39 yo man with a history of CAD s/p shent, allergy to Aspirin, hypertension and DM type 2 who presents with left sided chest pains. He was sent from his [facility] office, Dr. Taylor of [facility]. He was found to have ribs fractures with a remote history of mechanical fall. * 2v CXR IMPRESSION: 1. There are fractures of the left seventh and eighth ribs. There is focal pleural thickening which may represent loculated pleural or subpleural hematoma. No pneumothorax is seen. * CT chest without contrast FINDINGS: There are old fractures of the left posterior lateral seventh and eighth ribs. There is mild associated pleural thickening but no evidence of extrapleural hematoma, pleural effusion or acute lung disease. Mediastinal images are normal. Limited upper abdominal images are not remarkable. Chest pain/coronary artery disease Check cardiac enzymes, IV morphine, consult cardiology CHF, stable, probably diastolic Diabetes Check fingersticks, start insulin sliding scale Hypertension Continue outpatient medications DVT prophylaxis reviewed 02/03/20: Chest pains appears to be conchrondritis due to rib fractures; however, history of CAD warrants Cardiology evaluation History Interval history: Patient was seen and examined. Follow-up on current diagnosis of chest pains. Overnight uneventful as no events directly reported to me. Patient denies any shortness breath, nausea/vomiting or severe headaches. Imaging, nursing note, chart, labs and old chart reviewed. Discussed with patient. Hospitalist Physical - Physical exam Narrative exam: Gen: WDWN, NAD, Awake, Alert, Orientated HEENT: NCAT, EOMI, PERRL, OP Clear Neck: supple, no adenopathy, no thyromegaly, no JVD CVS/Heart: RRR, normal S1S2, pulses present bilaterally Chest/Lungs: CTA B, Symmetrical chest expansion, good air entry bilaterally, reproducible left chest wall tenderness GI/Abdomen: soft, NTND, good bowel sounds, no guarding or rebound /Bladder: no suprapubic tenderness, no CVA or paraspinal tenderness Extermity/Skin: no c/c/e, no obvious rash MSK: FROM x 4 Neuro: CN 2-12 grossly intact, no new focal deficits Psych: calm - Constitutional Vitals: Temp Pulse Resp BP Pulse Ox 97.6 F 65 16 103/52 96 02/03/20 04:31 02/03/20 04:31 02/03/20 04:31 02/03/20 04:31 02/03/20 04:31 TARYN score - Taryn Score Age > 65: (0) No Aspirin use within the Past 7 Days: (0) No 3 or more CAD Risk Factors: (1) Yes 2 or more Angina events in past 24 hrs: (1) Yes Known CAD with more than 50% Stenosis: (0) No Elevated Cardiac Markers: (0) No ST Deviation Greater than 0.5mm: (0) No TARYN Score: 2 Results - Labs CBC & Chem 7: 02/02/20 17:23 02/02/20 17:23 Labs: Laboratory Last Values WBC 8.7 K/mm3 (4.5-11.0) 02/02/20 17:23 RBC 5.02 M/mm3 (3.65-5.03) 02/02/20 17:23 Hgb 15.5 gm/dl (11.8-15.2) H 02/02/20 17:23 Hct 43.4 % (35.5-45.6) 02/02/20 17:23 MCV 87 fl (84-94) 02/02/20 17:23 MCH 31 pg (28-32) 02/02/20 17:23 MCHC 36 % (32-34) H 02/02/20 17:23 RDW 13.4 % (13.2-15.2) 02/02/20 17:23 Plt Count 314 K/mm3 (140-440) 02/02/20 17:23 Lymph % (Auto) 32.4 % (13.4-35.0) 02/02/20 17:23 Iron % (Auto) 7.8 % (0.0-7.3) H 02/02/20 17:23 Eos % (Auto) 1.4 % (0.0-4.3) 02/02/20 17:23 Baso % (Auto) 0.8 % (0.0-1.8) 02/02/20 17:23 Lymph # 2.8 K/mm3 (1.2-5.4) 02/02/20 17:23 [place] # 0.7 K/mm3 (0.0-0.8) 02/02/20 17:23 Eos # 0.1 K/mm3 (0.0-0.4) 02/02/20 17:23 Baso # 0.1 K/mm3 (0.0-0.1) 02/02/20 17:23 Seg Neutrophils % 57.6 % (40.0-70.0) 02/02/20 17:23 Seg Neutrophils # 5.0 K/mm3 (1.8-7.7) 02/02/20 17:23 PT 12.8 Sec. (12.2-14.9) 02/02/20 17:23 INR 0.95 (0.87-1.13) 02/02/20 17:23 APTT 31.3 Sec. (24.2-36.6) 02/02/20 17:23 Sodium 134 mmol/L (137-145) L 02/02/20 17:23 Potassium 3.7 mmol/L (3.6-5.0) 02/02/20 17:23 Chloride 98.8 mmol/L (98-107) 02/02/20 17:23 Carbon Dioxide 19 mmol/L (22-30) L 02/02/20 17:23 Anion Gap 20 mmol/L 02/02/20 17:23 BUN 16 mg/dL (9-20) 02/02/20 17:23 Creatinine 0.6 mg/dL (0.8-1.5) L 02/02/20 17:23 Estimated GFR > 60 ml/min 02/02/20 17:23 BUN/Creatinine Ratio 27 % 02/02/20 17:23 Glucose 390 mg/dL (75-100) H 02/02/20 17:23 POC Glucose 267 (70-105) H 02/03/20 00:26 Calcium 9.0 mg/dL (8.4-10.2) 02/02/20 17:23 Magnesium 2.10 mg/dL (1.7-2.3) 02/02/20 22:43 Total Creatine Kinase 100 units/L (55-170) 02/02/20 22:54 CK-MB (CK-2) 1.9 ng/mL (0.0-4.0) 02/02/20 22:54 CK-MB (CK-2) Rel Index 1.9 (0-4) 02/02/20 22:54 Troponin T < 0.010 ng/mL (0.00-0.029) 02/02/20 22:54 Salgado/IV: IV Catheter Type [right arm] Peripheral IV Active Medications - Current Medications Current Medications: Generic Name Dose Route Start Last Admin Trade Name Freq PRN Reason Stop Dose Admin Acetaminophen 650 mg 02/02/20 22:40 Tylenol PO Q4H PRN Pain MILD(1-3)/Fever >100.5/RAMOS Atorvastatin Calcium 80 mg 02/03/20 10:00 Lipitor PO DAILY [facility] Benzonatate 100 mg 02/03/20 01:46 Tessalon Perles PO TID PRN Cough Clopidogrel Bisulfate 75 mg 02/03/20 10:00 Plavix PO QDAY [facility] Dextrose 50 ml 02/03/20 04:56 D50w (25gm) Syringe IV Q30MIN PRN Hypoglycemia Protocol Enoxaparin Sodium 40 mg 02/03/20 10:00 Enoxaparin SUB-Q QDAY@1000 [facility] Escitalopram Oxalate 20 mg 02/03/20 10:00 Lexapro PO DAILY [facility] Famotidine 20 mg 02/03/20 10:00 Pepcid PO BID [facility] Insulin Human Lispro 0 unit 02/03/20 07:30 Humalog SUB-Q ACHS [facility] Protocol Lisinopril 20 mg 02/03/20 10:00 Zestril PO QDAY [facility] Metformin HCl 1,000 mg 02/03/20 08:00 Glucophage PO QDDIAB [facility] Metoprolol Tartrate 50 mg 02/03/20 10:00 Metoprolol PO DAILY [facility] Morphine Sulfate 2 mg 02/02/20 22:40 Morphine IV Q4H PRN Pain, Moderate (4-6) Nitroglycerin 0.4 mg 02/02/20 19:48 02/02/20 20:20 Nitrostat SL 0.4 mg .Q5MIN PRN Administration Chest Pain Ondansetron HCl 4 mg 02/02/20 22:40 Zofran IV Q8H PRN Nausea And Vomiting Sodium Chloride 10 ml 02/03/20 10:00 Sodium Chloride Flush Syringe 10 Ml IV BID IRINEO Sodium Chloride 10 ml 02/02/20 22:40 Sodium Chloride Flush Syringe 10 Ml IV PRN PRN LINE FLUSH Trazodone HCl 50 mg 02/03/20 01:45 Desyrel PO QHS PRN Sleep
[2020-02-03 07:53] LABS: Creatine Kinase MB 1.9 ng/mL (0.0-4.0)
[2020-02-03 07:54] LABS: BUN/Creatinine Ratio 28; Blood Urea Nitrogen 14 mg/dL (9-20); Calcium 9.1 mg/dL (8.4-10.2); Hemolysis Index 30
[2020-02-03] MEDS ORDERED: metFORMIN 500 MG TAB PO SCH (08:00)
[2020-02-03] MEDS ORDERED: HYDROcodone/ACETAMINOPHEN 5-325 MG TAB PO PRN (08:00)
--- NOTE | 2020-02-03 09:28 | Consultation ---
History of Present Illness Consult date: 02/03/20 Consult reason: chest pain History of present illness: Impression Atypical chest pain likely MSK history of work-related rib fractures CAD, known cardiac stents, last one > 1 year ago Trop negative x 3 Cardiac exam benign, no CHF Plan No evidence of ACS Pain control for rib fractures Outpt follow-up, can be discharge home from CV standpoint. Past History Past Medical History: CAD, diabetes, hypertension, hyperlipidemia Medications and Allergies Allergies Allergy/AdvReac Type Severity Reaction Status Date / Time shellfish derived Allergy Anaphylaxis Verified 02/02/20 17:06 aspirin AdvReac Hives Verified 02/02/20 17:06 Penicillins AdvReac Hives Verified 02/02/20 17:06 Home Medications Medication Instructions Recorded Confirmed Last Taken Type Metformin HCl [Glucophage] 1,000 mg PO DAILY 06/30/17 02/03/20 02/01/20 History Metoprolol [Lopressor TAB] 50 mg PO DAILY 06/30/17 02/03/20 02/03/20 05:32 History Benzonatate 100 mg PO TID PRN 02/02/20 02/03/20 02/03/20 05:32 History Clopidogrel [Plavix] 75 mg PO QDAY 02/02/20 02/03/20 02/03/20 05:31 History Diclofenac EC 50 mg PO QDAY 02/02/20 02/03/20 02/03/20 05:31 History Escitalopram 20 mg PO QDAY 02/02/20 02/03/20 02/03/20 05:32 History Famotidine/Ca Carb/Mag Hydrox 20 mg PO BID 02/02/20 02/03/20 02/03/20 05:32 History Promethazine 25 mg PO Q6H PRN 02/02/20 02/03/20 02/03/20 05:32 History Rosuvastatin Calcium 40 mg PO QDAY 02/02/20 02/03/20 02/01/20 History lisinopriL [Zestril TAB] 20 mg PO QDAY 02/02/20 02/02/20 02/03/20 05:32 History traZODone 50 mg PO QHS PRN 02/02/20 02/03/20 02/03/20 05:32 History Active Meds: Active Medications Acetaminophen (Tylenol) 650 mg PO Q4H PRN PRN Reason: Pain MILD(1-3)/Fever >100.5/RAMOS Acetaminophen/Hydrocodone Bitart ([place] 5/325) 1 each PO Q4H PRN PRN Reason: Pain, Moderate (4-6) Atorvastatin Calcium (Lipitor) 80 mg PO DAILY [facility] Benzonatate (Tessalon Perles) 100 mg PO TID PRN PRN Reason: Cough Clopidogrel Bisulfate (Plavix) 75 mg PO QDAY [facility] Dextrose (D50w (25gm) Syringe) 50 ml IV Q30MIN PRN; Protocol PRN Reason: Hypoglycemia Enoxaparin Sodium (Enoxaparin) 40 mg SUB-Q QDAY@1000 [facility] Escitalopram Oxalate (Lexapro) 20 mg PO DAILY [facility] Famotidine (Pepcid) 20 mg PO BID [facility] Insulin Human Lispro (Humalog) 0 unit SUB-Q ACHS [facility]; Protocol Lisinopril (Zestril) 20 mg PO QDAY [facility] Metformin HCl (Glucophage) 1,000 mg PO QDDIAB [facility] Metoprolol Tartrate (Metoprolol) 50 mg PO DAILY [facility] Morphine Sulfate (Morphine) 2 mg IV Q4H PRN PRN Reason: Pain, Moderate (4-6) Nitroglycerin (Nitrostat) 0.4 mg SL .Q5MIN PRN PRN Reason: Chest Pain Last Admin: 02/02/20 20:20 Dose: 0.4 mg Documented by: Ondansetron HCl (Zofran) 4 mg IV Q8H PRN PRN Reason: Nausea And Vomiting Sodium Chloride (Sodium Chloride Flush Syringe 10 Ml) 10 ml IV BID [facility] Sodium Chloride (Sodium Chloride Flush Syringe 10 Ml) 10 ml IV PRN PRN PRN Reason: LINE FLUSH Trazodone HCl (Desyrel) 50 mg PO QHS PRN PRN Reason: Sleep Review of Systems All systems: negative (except stated in impression) Physical Examination Vital Signs Pulse Resp BP Pulse Ox 71 16 136/78 98 02/02/20 17:02 02/02/20 17:02 02/02/20 17:02 02/02/20 17:02 General appearance: no acute distress HEENT: Positive: PERRL Neck: Positive: neck supple Cardiac: Positive: Reg Rate and Rhythm, S1/S2 Lungs: Positive: Normal Exam Neuro: Positive: Grossly Intact Abdomen: Positive: Unremarkable Extremities: Absent: edema Results 02/03/20 06:55 02/03/20 06:55 Cardiac Enzymes 02/02/20 02/03/20 Range/Units 22:54 06:55 CK-MB (CK-2) 1.9 1.9 (0.0-4.0) ng/mL Coagulation 02/02/20 Range/Units 17:23 PT 12.8 (12.2-14.9) Sec. INR 0.95 (0.87-1.13) APTT 31.3 (24.2-36.6) Sec. CBC 02/02/20 02/03/20 Range/Units 17:23 06:55 WBC 8.7 7.2 (4.5-11.0) K/mm3 RBC 5.02 5.22 H (3.65-5.03) M/mm3 Hgb 15.5 H 15.7 H (11.8-15.2) gm/dl Hct 43.4 45.3 (35.5-45.6) % Plt Count 314 296 (140-440) K/mm3 Lymph # 2.8 2.5 (1.2-5.4) K/mm3 [place] # 0.7 0.6 (0.0-0.8) K/mm3 Eos # 0.1 0.2 (0.0-0.4) K/mm3 Baso # 0.1 0.0 (0.0-0.1) K/mm3 Comprehensive Metabolic Panel 02/02/20 02/03/20 Range/Units 17:23 06:55 Sodium 134 L 140 (137-145) mmol/L Potassium 3.7 4.1 (3.6-5.0) mmol/L Chloride 98.8 104.7 (98-107) mmol/L Carbon Dioxide 19 L 23 (22-30) mmol/L BUN 16 14 (9-20) mg/dL Creatinine 0.6 L 0.5 L (0.8-1.5) mg/dL Glucose 390 H 277 H (75-100) mg/dL Calcium 9.0 9.1 (8.4-10.2) mg/dL
[2020-02-03] MEDS ORDERED: ENOXAPARIN 30 MG/0.3 ML INJ SUB-Q SCH (10:00)
[2020-02-03] MEDS ORDERED: FAMOTIDINE 20 MG TAB PO SCH (10:00)
[2020-02-03] MEDS ORDERED: ESCITALOPRAM 10 MG TAB PO SCH (10:00)
[2020-02-03] MEDS ORDERED: NON-FORMULARY EACH (Metformin Hcl [Glucophage] 1,000 MG) PO SCH (10:00)
[2020-02-03] MEDS ORDERED: CA CARB PO SCH (10:00)
[2020-02-03] MEDS ORDERED: CLOPIDOGREL 75 MG TAB PO SCH (10:00)
[2020-02-03] MEDS ORDERED: LISINOPRIL 20 MG TAB PO SCH (10:00)
[2020-02-03] MEDS ORDERED: NON-FORMULARY EACH (Escitalopram 20 MG) PO SCH (10:00)
[2020-02-03] MEDS ORDERED: ENOXAPARIN 40 MG/0.4 ML INJ SUB-Q SCH (10:00)
[2020-02-03] MEDS ORDERED: MAG HYDROX PO SCH (10:00)
[2020-02-03] MEDS ORDERED: FAMOTIDINE PO SCH (10:00)
[2020-02-03] MEDS ORDERED: ROSUVASTATIN CALCIUM 40 MG PO SCH (10:00)
[2020-02-03] MEDS: METOPROLOL TARTRATE 50 MG TAB PO SCH (11:01)
--- NOTE | 2020-02-03 12:20 | Progress Note ---
Assessment and Plan Assessment and plan: Patient is a 39 yo man with a history of CAD s/p shent, allergy to Aspirin, hypertension and DM type 2 who presents with left sided chest pains. He was sent from his [employer] office, Dr. Taylor of [facility]. He was found to have ribs fractures with a remote history of mechanical fall. * 2v CXR IMPRESSION: 1. There are fractures of the left seventh and eighth ribs. There is focal pleural thickening which may represent loculated pleural or subpleural hematoma. No pneumothorax is seen. * CT chest without contrast FINDINGS: There are old fractures of the left posterior lateral seventh and eighth ribs. There is mild associated pleural thickening but no evidence of extrapleural hematoma, pleural effusion or acute lung disease. Mediastinal images are normal. Limited upper abdominal images are not remarkable. Chest pain/coronary artery disease Check cardiac enzymes, IV morphine, consult cardiology CHF, stable, probably diastolic Diabetes Check fingersticks, start insulin sliding scale Hypertension Continue outpatient medications DVT prophylaxis reviewed 02/03/20: Chest pains appears to be conchrondritis due to rib fractures; however, history of CAD warrants Cardiology evaluation History Interval history: Patient was seen and examined. Follow-up on current diagnosis of chest pains. Overnight uneventful as no events directly reported to me. Patient denies any shortness breath, nausea/vomiting or severe headaches. Imaging, nursing note, chart, labs and old chart reviewed. Discussed with patient. Hospitalist Physical - Physical exam Narrative exam: Gen: WDWN, NAD, Awake, Alert, Orientated HEENT: NCAT, EOMI, PERRL, OP Clear Neck: supple, no adenopathy, no thyromegaly, no JVD CVS/Heart: RRR, normal S1S2, pulses present bilaterally Chest/Lungs: CTA B, Symmetrical chest expansion, good air entry bilaterally, reproducible left chest wall tenderness GI/Abdomen: soft, NTND, good bowel sounds, no guarding or rebound /Bladder: no suprapubic tenderness, no CVA or paraspinal tenderness Extermity/Skin: no c/c/e, no obvious rash MSK: FROM x 4 Neuro: CN 2-12 grossly intact, no new focal deficits Psych: calm - Constitutional Vitals: Temp Pulse Resp BP Pulse Ox 97.5 F L 59 L 18 108/46 96 02/03/20 08:30 02/03/20 11:03 02/03/20 08:30 02/03/20 11:03 02/03/20 08:30 General appearance: Present: no acute distress TARYN score - Taryn Score Age > 65: (0) No Aspirin use within the Past 7 Days: (0) No 3 or more CAD Risk Factors: (1) Yes 2 or more Angina events in past 24 hrs: (1) Yes Known CAD with more than 50% Stenosis: (0) No Elevated Cardiac Markers: (0) No ST Deviation Greater than 0.5mm: (0) No TARYN Score: 2 Results - Labs CBC & Chem 7: 02/03/20 06:55 02/03/20 06:55 Labs: Laboratory Last Values WBC 7.2 K/mm3 (4.5-11.0) 02/03/20 06:55 RBC 5.22 M/mm3 (3.65-5.03) H 02/03/20 06:55 Hgb 15.7 gm/dl (11.8-15.2) H 02/03/20 06:55 Hct 45.3 % (35.5-45.6) 02/03/20 06:55 MCV 87 fl (84-94) 02/03/20 06:55 MCH 30 pg (28-32) 02/03/20 06:55 MCHC 35 % (32-34) H 02/03/20 06:55 RDW 13.5 % (13.2-15.2) 02/03/20 06:55 Plt Count 296 K/mm3 (140-440) 02/03/20 06:55 Lymph % (Auto) 35.0 % (13.4-35.0) 02/03/20 06:55 [place] % (Auto) 8.3 % (0.0-7.3) H 02/03/20 06:55 Eos % (Auto) 2.6 % (0.0-4.3) 02/03/20 06:55 Baso % (Auto) 0.6 % (0.0-1.8) 02/03/20 06:55 Lymph # 2.5 K/mm3 (1.2-5.4) 02/03/20 06:55 [place] # 0.6 K/mm3 (0.0-0.8) 02/03/20 06:55 Eos # 0.2 K/mm3 (0.0-0.4) 02/03/20 06:55 Baso # 0.0 K/mm3 (0.0-0.1) 02/03/20 06:55 Seg Neutrophils % 53.5 % (40.0-70.0) 02/03/20 06:55 Seg Neutrophils # 3.8 K/mm3 (1.8-7.7) 02/03/20 06:55 PT 12.8 Sec. (12.2-14.9) 02/02/20 17:23 INR 0.95 (0.87-1.13) 02/02/20 17:23 APTT 31.3 Sec. (24.2-36.6) 02/02/20 17:23 Sodium 140 mmol/L (137-145) 02/03/20 06:55 Potassium 4.1 mmol/L (3.6-5.0) 02/03/20 06:55 Chloride 104.7 mmol/L (98-107) 02/03/20 06:55 Carbon Dioxide 23 mmol/L (22-30) 02/03/20 06:55 Anion Gap 16 mmol/L 02/03/20 06:55 BUN 14 mg/dL (9-20) 02/03/20 06:55 Creatinine 0.5 mg/dL (0.8-1.5) L 02/03/20 06:55 Estimated GFR > 60 ml/min 02/03/20 06:55 BUN/Creatinine Ratio 28 % 02/03/20 06:55 Glucose 277 mg/dL (75-100) H 02/03/20 06:55 POC Glucose 223 (70-105) H 02/03/20 09:11 Calcium 9.1 mg/dL (8.4-10.2) 02/03/20 06:55 Magnesium 2.10 mg/dL (1.7-2.3) 02/02/20 22:43 Total Creatine Kinase 87 units/L (55-170) 02/03/20 06:55 CK-MB (CK-2) 1.9 ng/mL (0.0-4.0) 02/03/20 06:55 CK-MB (CK-2) Rel Index 2.1 (0-4) 02/03/20 06:55 Troponin T < 0.010 ng/mL (0.00-0.029) 02/03/20 06:55 Salgado/IV: IV Catheter Type [right arm] Peripheral IV Active Medications - Current Medications Current Medications: Generic Name Dose Route Start Last Admin Trade Name Freq PRN Reason Stop Dose Admin Acetaminophen 650 mg 02/02/20 22:40 Tylenol PO Q4H PRN Pain MILD(1-3)/Fever >100.5/RAMOS Acetaminophen/Hydrocodone Bitart 1 each 02/03/20 08:00 [place] 5/325 PO Q4H PRN Pain, Moderate (4-6) Atorvastatin Calcium 80 mg 02/03/20 10:00 02/03/20 11:00 Lipitor PO 80 mg DAILY IR[facility] Administration Benzonatate 100 mg 02/03/20 01:46 Tessalon Perles PO TID PRN Cough Clopidogrel Bisulfate 75 mg 02/03/20 10:00 02/03/20 11:02 Plavix PO 75 mg QDAY IRINEO Administration Dextrose 50 ml 02/03/20 04:56 D50w (25gm) Syringe IV Q30MIN PRN Hypoglycemia Protocol Enoxaparin Sodium 40 mg 02/03/20 10:00 02/03/20 11:01 Enoxaparin SUB-Q 40 mg QDAY@1000 IRINEO Administration Escitalopram Oxalate 20 mg 02/03/20 10:00 02/03/20 11:00 Lexapro PO 20 mg DAILY [facility] Administration Famotidine 20 mg 02/03/20 10:00 02/03/20 11:01 Pepcid PO 20 mg BID IRINEO Administration Insulin Human Lispro 0 unit 02/03/20 07:30 02/03/20 11:07 Humalog SUB-Q 4 unit ACHS [facility] Administration Protocol Lisinopril 20 mg 02/03/20 10:00 02/03/20 11:03 Zestril PO 20 mg QDAY IRINE[facility] Administration Metformin HCl 1,000 mg 02/03/20 08:00 02/03/20 11:02 Glucophage PO 1,000 mg QDDIAB IRINEO Administration Metoprolol Tartrate 50 mg 02/03/20 10:00 02/03/20 11:01 Metoprolol PO 50 mg DAILY IRINE[facility] Administration Morphine Sulfate 2 mg 02/02/20 22:40 Morphine IV Q4H PRN Pain, Moderate (4-6) Nitroglycerin 0.4 mg 02/02/20 19:48 02/02/20 20:20 Nitrostat SL 0.4 mg .Q5MIN PRN Administration Chest Pain Ondansetron HCl 4 mg 02/02/20 22:40 Zofran IV Q8H PRN Nausea And Vomiting Sodium Chloride 10 ml 02/03/20 10:00 02/03/20 11:08 Sodium Chloride Flush Syringe 10 Ml IV 10 ml BID IRINEO Administration Sodium Chloride 10 ml 02/02/20 22:40 Sodium Chloride Flush Syringe 10 Ml IV PRN PRN LINE FLUSH Trazodone HCl 50 mg 02/03/20 01:45 Desyrel PO QHS PRN Sleep
--- NOTE | 2020-02-03 12:24 | Discharge Summary ---
Providers - Providers Date of Admission: 02/02/20 21:49 Date of discharge: 02/03/20 Attending physician: JONAH BUTLER 02/02/20 19:46 Consult to Physician [CONS] Urgent Comment: Consulting Provider: SALVADOR LANGFORD Physician Instructions: Reason For Exam: cp ekg changes Primary care physician: CRISIS INTERVENTION COUNSELOR Hospitalization Condition: Stable Hospital course: Patient is a 39 yo man with a history of CAD s/p shent, allergy to Aspirin, hypertension and DM type 2 who presents with left sided chest pains. He was sent from his [employer] office, Dr. Taylor of [facility]. He was found to have ribs fractures with a remote history of mechanical fall. 02/03/20: Chest pains appears to be conchrondritis due to rib fractures; however, history of CAD warrants Cardiology evaluation. I d/w Cardiology, Dr. Wheeler, in person at nursing station and he has cleared patient to go home. * 2v CXR IMPRESSION: 1. There are fractures of the left seventh and eighth ribs. There is focal pleural thickening which may represent loculated pleural or subpleural hematoma. No pneumothorax is seen. * CT chest without contrast FINDINGS: There are old fractures of the left posterior lateral seventh and eighth ribs. There is mild associated pleural thickening but no evidence of extrapleural hematoma, pleural effusion or acute lung disease. Mediastinal images are normal. Limited upper abdominal images are not remarkable. Discharge Diagnoses: Chest pain due to costochondritis, traumatic rib fractures from fall Check cardiac enzymes, IV morphine, consult cardiology Chronic diastolic heart failure, stable, Diabetes mellitus type 2 Check fingersticks, start insulin sliding scale Hypertension Continue outpatient medications DVT prophylaxis reviewed Disposition: - TO HOME OR SELFCARE Time spent for discharge: 33 minutes Core Measure Documentation - Palliative Care Palliative Care/ Comfort Measures: Not Applicable - Core Measures Any of the following diagnoses?: none - VTE Discharge Requirements Deep Vein Thrombosis/Pulmonary Embolism Present on Admission: No Has pt received <5 days of overlap therapy or INR<2.0: No Anticoagulant overlap therapy prescribed at discharge: No Contraindication No Overlap Therapy order at DC: Not Indicated Exam - Physical Exam Narrative exam: Gen: WDWN, NAD, Awake, Alert, Orientated HEENT: NCAT, EOMI, PERRL, OP Clear Neck: supple, no adenopathy, no thyromegaly, no JVD CVS/Heart: RRR, normal S1S2, pulses present bilaterally Chest/Lungs: CTA B, Symmetrical chest expansion, good air entry bilaterally, reproducible left chest wall tenderness GI/Abdomen: soft, NTND, good bowel sounds, no guarding or rebound /Bladder: no suprapubic tenderness, no CVA or paraspinal tenderness Extermity/Skin: no c/c/e, no obvious rash MSK: FROM x 4 Neuro: CN 2-12 grossly intact, no new focal deficits Psych: calm - Constitutional Vitals: Temp Pulse Resp BP Pulse Ox 97.5 F L 59 L 18 108/46 96 02/03/20 08:30 02/03/20 11:03 02/03/20 08:30 02/03/20 11:03 02/03/20 08:30 Plan Activity: other (no strenous activity unless cleared by PCP) Diet: low salt, diabetic Special Instructions: record daily BP diary (once a day, create a log book with time, date, blood sugar level and take to PCP), record blood sugar diary (three times a day, create a log book with time, date, blood sugar level and take to PCP), smoking cessation Follow up with: PRIMARY CARE, [Primary Care Provider] - 3-5 Days IVAN WHEELER MD [Staff Physician] - 7 Days Prescriptions: Acetaminophen [Acetaminophen TAB] 325 mg PO Q4H PRN #18 tablet PRN Reason: Pain MILD(1-3)/Fever >100.5/RAMOS HYDROcodone/APAP 5-325 [[place] 5-325 mg TAB] 1 each PO Q4H PRN #6 tablet PRN Reason: Pain , Severe (7-10)
[2020-02-03 12:47] VITALS: BP 134/84
== END 2020-02-03 15:21 | disposition home or self-care (01) ==
LOC: ED 16:59 → 4A 21:49
PROVIDERS: ADMIT Internal Medicine; ATTEND Internal Medicine
DX: M94.0 Chondrocostal junction syndrome [Tietze] (principal); S22.42XD Multiple fractures of ribs, left side, subsequent encounter for fracture with routine healing; I25.118 Atherosclerotic heart disease of native coronary artery with other forms of angina pectoris; I11.0 Hypertensive heart disease with heart failure; I50.32 Chronic diastolic (congestive) heart failure; E11.65 Type 2 diabetes mellitus with hyperglycemia; J45.909 Unspecified asthma, uncomplicated; Z79.4 Long term (current) use of insulin; Z79.899 Other long term (current) drug therapy; Z88.0 Allergy status to penicillin; Z88.6 Allergy status to analgesic agent; Z91.013 Allergy to seafood; W18.39XD Other fall on same level, subsequent encounter; Y93.89 Activity, other specified; Y92.89 Other specified places as the place of occurrence of the external cause
CPT/HCPCS: 36415; 71046; 71250; 80048; 82550; 82553; 82962; 83735; 84484; 85025; 85610; 85730; 96372; 96374; 96375; 99284; A9270; G0378; J1650; J2270; J7050; J1815